=== PATIENT | female | born 1945 | race African-American/Black ===

== ENCOUNTER 2016-08-10 05:01 | Inpatient (IN) | payer OTHER ==
[2016-07-27 11:40] VITALS: BMI 30.9
[~2016-08-10 05:01] MED LIST: BACITRACIN 30 GM TUBE TOPICAL OINTMENT TP ONE; BUPIVACAINE HCL/PF 0.5% (5MG/ML) 10 ML VIAL IJ ONE
[2016-08-10] MEDS ORDERED: BUPIVACAINE HCL/PF 0.5% (5MG/ML) 10 ML VIAL ONE (07:12)
[2016-08-10] MEDS ORDERED: THROMBIN (BOVINE) 5,000 UNIT VIAL TP ONE ×3 (07:12→09:00)
[2016-08-10] MEDS ORDERED: BACITRACIN 30 GM TUBE TOPICAL OINTMENT ONE (07:12)
--- NOTE | 2016-08-10 07:29 | HP ---
History & Physical Update - History History: No Change - Physical Physical: No Change - Assessment Assessment: No Change - Plan Plan: No Change (70 yo F presents for planned lumbar laminectomy with Dr. Miguel. No changes to H&P present in paper chart. I introduced myself to the patient and informed her I would be assisting Dr. Miguel with today's surgery.)
[2016-08-10] MEDS ORDERED: MIDAZOLAM HCL 2 MG/2 ML SINGLE DOSE VIAL ONE (07:53)
[2016-08-10] MEDS ORDERED: ROCURONIUM BROMIDE 50 MG/5 ML VIAL ONE (07:54)
[2016-08-10] MEDS ORDERED: PROPOFOL 20 ML ONE (07:54)
[2016-08-10] MEDS ORDERED: ceFAZolin SODIUM 1 GM VIAL IVPB ONE (08:53)
[2016-08-10] MEDS ORDERED: ceFAZolin SODIUM 1 GM VIAL ONE (08:53)
[2016-08-10] MEDS ORDERED: BACITRACIN 50,000 UNITS VIAL TP ONE (09:00)
[2016-08-10] MEDS ORDERED: BUPIVACAINE HCL/PF 0.5% (5MG/ML) 10 ML VIAL IJ ONE (10:15)
[2016-08-10] MEDS ORDERED: ONDANSETRON 4 MG/2 ML VIAL ONE (10:42)
[2016-08-10] MEDS ORDERED: NEOSTIGMINE METHYLSULFATE 0.5 MG/ML - 10 ML MDV ONE (10:42)
[2016-08-10] MEDS ORDERED: GLYCOPYRROLATE 0.2 MG/1 ML VIAL ONE (10:42)
[2016-08-10] MEDS ORDERED: DEXAMETHASONE SOD PHOSPHATE 4 MG/1 ML VIAL ONE (10:42)
--- NOTE | 2016-08-10 10:45 | OP ---
Operative Note - Note: Operative Date: 08/10/16 Pre-Operative Diagnosis: Spinal stenosis, DDD, radiculopathy Operation: Complete B laminectomies L4 and L5, partial L3 and S1 laminectomies, medial facetectomies L3-4 and L4-5 and foramenotomies L3-4, L4-5, L5-S1; autologous bone graft, postero-lateral fusion L3-4 and L4-5 Findings: Hypermobility L3-4 and L4-5 Post-Operative Diagnosis: Same as Pre-op Surgeon: Mike Miguel Hydrometeorologist: Destiny Marte Anesthesiologist/DIGITAL ADVERTISING ANALYST: Maria Elena Whittaker MD Anesthesia: General Estimated Blood Loss (mls): 200
[2016-08-10] MEDS ORDERED: BACITRACIN 30 GM TUBE TOPICAL OINTMENT TP ONE (10:46)
[2016-08-10] MEDS ORDERED: ONDANSETRON 4 MG/2 ML VIAL IVPB PRN (10:46)
[2016-08-10] MEDS ORDERED: BISACODYL 10 MG SUPP.RECT RC PRN (10:46)
[2016-08-10] MEDS ORDERED: ALBUTEROL SO4 6.7 GM HFA INHALER IH PRN (10:51)
--- NOTE | 2016-08-10 11:13 | SURG ---
Surgery Hand Tennis Ball Coverer Note Hand Tennis Ball Coverer: Destiny Marte PA-C Date of Service: 08/10/16 Diagnosis: Spinal stenosis, DDD, radiculopathy Procedure: Complete bilat laminectomies L4 and L5, partial L3 and S1 laminectomies, medial facetectomies L3-4 and L4-5 and foramenotomies L3-4, L4-5, L5-S1; autologous bone graft, postero-lateral fusion L3-4 and L4-5 I was present for the entirety of the operative procedure. For further detail, please refer to operative report. Visit type - Case Type Case Type: Scheduled Admission - Emergency Emergency Visit: No - New patient This patient is new to me today: Yes Date on this admission: 08/10/16 - Critical Care Critical Care patient: No
[2016-08-10] MEDS ORDERED: DEXAMETHASONE SOD PHOSPHATE 4 MG/1 ML VIAL IVPUSH PRN (11:19)
[2016-08-10] MEDS ORDERED: PROMETHAZINE HCL 25 MG/1 ML VIAL IVPB PRN (11:19)
[2016-08-10] MEDS ORDERED: HYDROmorphone *PCA* 10MG/50ML DISP.SYRIN PCA ONE (11:40)
[2016-08-10] MEDS: HYDROmorphone *PCA* 10MG/50ML DISP.SYRIN PCA SCH ×2 (11:45→17:48)
[2016-08-10 12:13] LABS: MCH 28.5 pg (25.7-33.7); MCHC 31.5 g/dl (32.0-36.0); MEAN CELL VOLUME 90.5 fl (80-96); PLATELET COUNT 154 K/MM3 (134-434); RDW 13.8 % (11.6-15.6)
[2016-08-10 13:38] LABS: CALCIUM 8.8 mg/dL (8.5-10.1); COCKROFT - GAULT 83.13; CREATININE 0.8 mg/dL (0.55-1.02)
--- NOTE | 2016-08-10 17:20 | PN ---
Progress Note (short form) - Note Progress Note: NEUROSURGERY Pt seen in PACU earlier AF, VSS Incisional pain Dressing intact Drain in place Motor at least 4+/5 B LE Sensation grossly intact LT WBC 5. 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
[2016-08-10] MEDS: D5-1/2NS+20 MEQ KCL - 1,000 ML IV SCH (17:47)
[2016-08-10] MEDS: diazePAM 5 MG TABLET PO SCH ×2 (17:48→18:01)
[2016-08-10] MEDS: DOCUSATE SODIUM 100 MG CAPSULE (FP) PO SCH ×2 (17:49→21:11)
[2016-08-10] MEDS: CEFAZOLIN (PRE-DOCKED) 50 ML IVPB SCH (17:57)
[2016-08-10] MEDS: ATORVASTATIN CA 10 MG TABLET (FP) PO SCH (21:11)
[2016-08-11] MEDS: CEFAZOLIN (PRE-DOCKED) 50 ML IVPB SCH ×2 (02:31→11:16)
[2016-08-11] MEDS: diazePAM 5 MG TABLET PO SCH ×3 (02:32→18:05)
--- NOTE | 2016-08-11 02:34 | OP ---
DATE OF OPERATION: 08/10/2016 PREOPERATIVE DIAGNOSIS: 1. L4-5 greater than L3-4 degenerative disk disease. 2. Spinal stenosis at L4-5 greater than L3-4 and L5-S1. 3. Lower back pain and bilateral lumbar radiculopathy. 4. Hypertension. POSTOPERATIVE DIAGNOSIS: 1. L4-5 greater than L3-4 degenerative disk disease. 2. Spinal stenosis at L4-5 greater than L3-4 and L5-S1. 3. Lower back pain and bilateral lumbar radiculopathy. 4. Hypertension. ATTENDING SURGEON: Mike Miguel M.D. SUPERVISOR GRAPHITE: Stevan Hoang PROCEDURE: 1. Bilateral L4 and L5, and partial bilateral L3 and S1 laminectomy for spinal canal and lateral recess decompression including medial fasciectomy at L3-4 and L4-5 foraminotomies bilaterally, at L3-4 and L4-5 and L5-S1 for decompression of thecal sac as well as bilateral L3, L4, L5, S1 nerve roots ([id number], [id number], 16124, and 18213). 2. [place] of autologous laminar spinous process bone for interbody L4 posterolateral fusion ([id number]). 3. Posterolateral fusion L3-4, and L4-5 with autologous morcellized bone graft at L3-4 and L4-5 ([id number], [id number]). FINDINGS: 1. L3-4 and L4-5 are hypermobility. 2. Epidural venous oozing and paraspinal muscle oozing. INDICATION: The patient is a 70-year-old female with lower back pain, bilateral lumbar radiculopathy. She has undergone multi-modality conservative treatment but with persistent symptomatology. Because of intractable symptoms and very conservative treatment, she has consented for lumbar decompression, possible posterolateral bone graft fusion. The risks of procedure including but not limited to bleeding, infection, dural tear with CSF leak, neurological injury, increased thromboembolic risks and other risks of general anesthesia. The patient understands indication for the procedure, procedure in detail, risks and benefits and alternative for treatment of her lumbar condition and wishes to proceed. No guarantee was given for a favorable outcome. Preoperative medical clearance was obtained as well as cardiac clearance. PROCEDURE IN DETAIL: The patient was taken to the operating room. She was placed in supine position. After general anesthesia was induced and appropriate monitoring lines were placed, she was placed in prone position on Abelardo frame. All pressure points checked and padded. O2 saturation of bilateral lower extremity was 100% . Lumbar region was cleaned with alcohol and prepped with Betadine, and spinal needle placed. After the position was verified, a 4-inch incision was opened in midline from L3 to S1. Subperiosteal dissection was carried out with the periosteal elevator and monopolar cautery and electrocautery. Two self-retaining retractors were inserted. Facet joints at L3-4 and L4-5 were preserved. X-rays was obtained with a clamp on the bottom of left L4 lamina. After the position was verified, the supraspinatus and the interspinous ligament at L4 and L5 were resected with Leksell rongeur, and the spinous process at L4 and L5 were removed and morcellized for bone graft purposes. High speed pneumatic drill was used to complete laminectomy at L4-L5 as well as partially at L3 and S1. Kerrison rongeurs and angled curette were used to complete the job. Moderate degree of paraspinal in the epidural venous oozing was noted and hemostasis was maintained with bipolar electrocautery and thrombin- soaked powdered Gelfoam. The procedure was performed with loop magnification. Medial facetectomy at L3-4 and L4-5 was necessary in order to gain access to allow recess of proximal neural foramen. Even prior to laminectomy, a spinous process and ligament removal, the patient was found to have hypermobility L3-4 and L4-5. This was during intraoperative localizing x-ray. The bilateral foraminotomy at L3-4, L4-5, and L5-S1 were carried out with angled curette and Kerrison rongeur. The wound was irrigated with antibiotic containing irrigation. After the decompression was completed, the thecal sac was pulsating with CSF pulsation. A Valsalva maneuver was performed , and there is no CSF leak. Posterolateral surface of L3-4-5 including the proximal transverse processes were decorticated with high speed pneumatic drill and was then packed with autologous bone graft and bone dust which was harvested and morselized earlier. The wound was irrigated with copious amount of antibiotics and irrigation. A layer of Surgicel was laid in epidural space. A number 10 MESSI drain came out through a separate stab incision on right side. It was laid in epidural space. After the paraspinal hemostasis was obtained with bipolar electrocautery, the dorsal lumbar musculature was approximated with 0 Vicryl suture and dorsal lumbar fascia was closed with 0 Vicryl suture, subcutaneous fascia was closed with 0 Vicryl sutures, skin was closed with 4-0 Vicryl running subcuticular suture. Steri-Strips and sterile occlusive dressing was applied. The patient tolerated the procedure well, and was turned back to the supine position. She was moving bilateral upper and lower extremities well. She is not complaining of headache, and she has no new neurological deficit in the recovery room. The patient received 1 dose of 1 g of Ancef prior to the incision. All needle, sponge, lap counts are correct. OR time-out procedure was followed. Scott GARBER/[id number] MTDD
[2016-08-11] MEDS: DOCUSATE SODIUM 100 MG CAPSULE (FP) PO SCH ×3 (05:29→21:35)
--- NOTE | 2016-08-11 07:53 | PN ---
Progress Note (short form) - Note Progress Note: NEUROSURGERY POD #1 Incisional pain Tmax 98.6; AF, VSS Drain 85 cc yesterday, 80 cc today Incisional pain Dressing intact Motor at least 4+/5 B LE Sensation grossly intact LT SENIOR CONTRACTS ADMINISTRATOR Valium PT/OOB/incentive spirometry SCDS's for DVT prophylaxis Intra-op findings d/w pt Drain removed and dressing changed
[2016-08-11] MEDS: D5-1/2NS+20 MEQ KCL - 1,000 ML IV SCH ×2 (08:06→13:04)
--- NOTE | 2016-08-11 08:21 | PN ---
Progress Note (short form) - Note Progress Note: Anesthesia postop note and pain management follow up 70 y/o F s/p GA for lumbar laminectomy and dilaudid shingles roofer helper for pain management POD#1, vss, aaox3, pain well controlled with shingles roofer helper Will continue shingles roofer helper until patient tolerating po.
[2016-08-11] MEDS ORDERED: PATIENT'S OWN MEDICATION (NON-FORMULARY) (Lisinopril/Hydrochlorothiazide [Zestoretic 20-12 PO SCH (10:00)
[2016-08-11] MEDS ORDERED: PT OWN MED DRAWER 7, Y5N ONE (10:52)
[2016-08-11] MEDS: amLODIPine BESYLATE 5 MG TABLET (FP) PO SCH (11:17)
[2016-08-11] MEDS: HYDROCHLOROTHIAZIDE 12.5 MG CAPSULE (FP) PO SCH (11:17)
[2016-08-11] MEDS: POTASSIUM CHLORIDE TABS 10 MEQ TABLET.ER (FP) PO SCH (11:17)
[2016-08-11] MEDS: LISINOPRIL 20 MG TABLET (FP) PO SCH (11:17)
[2016-08-11] MEDS: HYDROmorphone *PCA* 10MG/50ML DISP.SYRIN PCA SCH (13:04)
[2016-08-11] MEDS: ACETAMINOPHEN 325 MG TABLET (FP) PO PRN (17:33)
[2016-08-11] MEDS ORDERED: D5-1/2NS+20 MEQ KCL - 1,000 ML IV SCH (18:45)
[2016-08-11] MEDS: ATORVASTATIN CA 10 MG TABLET (FP) PO SCH (21:35)
[2016-08-12] MEDS: ACETAMINOPHEN 325 MG TABLET (FP) PO PRN ×3 (01:21→18:44)
[2016-08-12] MEDS: diazePAM 5 MG TABLET PO SCH ×3 (02:58→18:45)
[2016-08-12] MEDS: DOCUSATE SODIUM 100 MG CAPSULE (FP) PO SCH ×3 (06:36→21:29)
--- NOTE | 2016-08-12 10:03 | PN ---
Progress Note (short form) - Note Progress Note: NEUROSURGERY POD #2 Incisional pain Legs and feet "a lot better" Tmax 101.2; now 100.4, VSS Drain out yesterday Incisional pain PE: CV- RRR; Lungs- CTA B; Abd- benign; Ext- no sign of DVT Dressing changed- minimal blood-tinged drainage Motor at least 4+/5 B LE Sensation grossly intact LT D/C TRUST OFFICER Incentive spirometry PT/OOB SCDS's for DVT prophylaxis CBC Observe temp If aferbrile plan d/c home tomorrow
[2016-08-12] MEDS: amLODIPine BESYLATE 5 MG TABLET (FP) PO SCH (10:15)
[2016-08-12] MEDS: POTASSIUM CHLORIDE TABS 10 MEQ TABLET.ER (FP) PO SCH (10:15)
[2016-08-12] MEDS: HYDROCHLOROTHIAZIDE 12.5 MG CAPSULE (FP) PO SCH (10:15)
[2016-08-12] MEDS: LISINOPRIL 20 MG TABLET (FP) PO SCH (10:15)
[2016-08-12] MEDS ORDERED: oxyCODONE HCL 5 MG TABLET ONE (10:18)
[2016-08-12] MEDS: oxyCODONE HCL 5 MG TABLET PO PRN ×3 (10:19→18:45)
--- NOTE | 2016-08-12 10:57 | PN ---
Progress Note (short form) - Note Progress Note: Post op day#2.Patient stable and c/o pain score of 2-3/10.SECRETARIAL STENOGRAPHER is Dc today and patient put on po pain medication.No any anesthesia related problem.Patient DC from the anesthesia care.
[2016-08-12] MEDS: ATORVASTATIN CA 10 MG TABLET (FP) PO SCH (21:29)
[2016-08-13] MEDS: oxyCODONE HCL 5 MG TABLET PO PRN ×4 (00:34→17:49)
[2016-08-13] MEDS: diazePAM 5 MG TABLET PO SCH ×3 (03:05→18:09)
[2016-08-13] MEDS: DOCUSATE SODIUM 100 MG CAPSULE (FP) PO SCH ×3 (05:57→21:21)
[2016-08-13 08:37] LABS: BASOPHIL 0.4 % (0-2.0); EOSINOPHIL 0.8 % (0-4.5); MCH 29.3 pg (25.7-33.7); MEAN CELL VOLUME 88.8 fl (80-96); MEAN PLT VOLUME 9.8 fl (7.5-11.1); NEUTROPHILS 55.9 % (42.8-82.8); PLATELET COUNT 173 K/MM3 (134-434); RDW 13.5 % (11.6-15.6); WHITE BLOOD COUNT 10.7 K/mm3 (4.0-10.0)
--- NOTE | 2016-08-13 08:45 | PN ---
Progress Note (short form) - Note Progress Note: NEUROSURGERY POD #3 Incisional pain Legs and feet "a lot better" Tmax 100.5; now 99.7, VSS Drain out POD #1 PE: CV- RRR; Lungs- CTA B; Abd- benign; Ext- no sign of DVT Dressing C/D/I Motor at least 4+/5 B LE Sensation grossly intact LT Incentive spirometry PT/OOB SCDS's for DVT prophylaxis CBC pending, check UA/CXR Given dry dressing start sq heparin also ID input VNS
--- NOTE | 2016-08-13 09:20 | PN ---
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 - Current Medication List Current Medications: Active Medications Acetaminophen (Tylenol -) 650 mg PO Q6H PRN PRN Reason: FEVER Last Admin: 08/12/16 18:44 Dose: 650 mg Albuterol Sulfate (Ventolin Hfa Inhaler -) 2 puff IH Q4H PRN PRN Reason: SHORT OF BREATH/WHEEZING Amlodipine Besylate (Norvasc -) 5 mg PO DAILY [facility] Last Admin: 08/12/16 10:15 Dose: 5 mg Atorvastatin Calcium (Lipitor -) 10 mg PO HS [facility] Last Admin: 08/12/16 21:29 Dose: 10 mg Bisacodyl (Dulcolax Suppository -) 10 mg RC DAILY PRN PRN Reason: CONSTIPATION Diazepam (Valium -) 5 mg PO Q8H [facility] Last Admin: 08/13/16 03:05 Dose: 5 mg Docusate Sodium (Colace -) 100 mg PO TID [facility] Last Admin: 08/13/16 05:57 Dose: 100 mg Fentanyl (Sublimaze Injection -) 50 mcg IVPUSH [id number] PRN PRN Reason: PAIN Stop: 08/13/16 11:20 Heparin Sodium (Porcine) (Heparin -) 5,000 unit SQ BID [facility] Hydrochlorothiazide (Hctz -) 12.5 mg PO DAILY [facility] Last Admin: 08/12/16 10:15 Dose: 12.5 mg Lisinopril (Prinivil) 20 mg PO DAILY [facility] Last Admin: 08/12/16 10:15 Dose: 20 mg Ondansetron HCl (Zofran Injection) 4 mg IVPB Q6H PRN PRN Reason: NAUSEA AND/OR VOMITING Oxycodone HCl (Roxicodone -) 5 mg PO Q4H PRN PRN Reason: PAIN Last Admin: 08/13/16 06:23 Dose: 5 mg Potassium Chloride (K-Dur -) 10 meq PO DAILY [facility] Last Admin: 08/12/16 10:15 Dose: 10 meq Promethazine HCl (Phenergan Injection -) 12.5 mg IVPB Q6H PRN PRN Reason: NAUSEA AND/OR VOMITING Propranolol HCl (Inderal La -) 240 mg PO DAILY [facility] Last Admin: 08/12/16 10:15 Dose: 240 mg - Objective Vital Signs: Vital Signs Temperature 99.7 F H 08/13/16 06:00 Pulse Rate 82 08/13/16 06:00 Respiratory Rate 18 08/13/16 06:00 Blood Pressure 114/56 08/13/16 06:00 O2 Sat by Pulse Oximetry (%) 96 08/12/16 21:00 Constitutional: Yes: Well Nourished, No Distress Cardiovascular: Yes: S1, S2. No: Tachycardia, Murmur Respiratory: Yes: WNL, Regular, CTA Bilaterally Gastrointestinal: Yes: WNL, Normal Bowel Sounds, Soft. No: Tenderness, Tenderness, Epigastrium Extremities: No: Cold, Cool, Cyanosis Edema: No Wound/Incision: Yes: Other (Intact) Labs: CBC, BMP 08/13/16 07:00 08/10/16 10:46 Problem List - Problems (1) Postoperative fever Code(s): R50.82 - POSTPROCEDURAL FEVER Assessment/Plan Laboratory Tests 08/13/16 07:00 WBC 10.7 H D Hgb 10.5 L Hct 31.7 L Plt Count 173 Assessment Post laminectomy fever looks well at this time Plan Observe only Cultures for over 101 and chest xray Vancom and Cefepime for any worseing clinical status [place] BROWN
--- NOTE | 2016-08-13 09:56 | CONS ---
DATE OF CONSULTATION: HISTORY: A 70-year-old female who I am asked to see post laminectomy for evaluation of fever. The case was briefly discussed with Dr. Miguel who had performed elective surgery on August 10, 2016. The preoperative diagnosis was spinal stenosis with radiculopathy. She underwent laminectomies of L4 and L5 as well as L3 and S1, facetectomies with autologous bone graft and posterolateral fusion L3-L4, L4-L5. The day postoperative, she began to have fever to 101.3. She is now day 3 postoperative and currently has a low-grade temperature of 99.7. The patient denies any localizing complaints. Specifically, she has no shortness of breath, chest pain, abdominal pain, diarrhea, or urinary complaints. She is not coughing and has not had any recent febrile illness prior to surgery. To date, she has been observed only. She is on no antibiotic. The patient has no history of recent trauma. 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 She is and has grown children. No one at home is sick. She has no pets, and her only hobbies include working with indoor plants at home. She has no HIV risk factors. PAST MEDICAL HISTORY: Includes glaucoma, hypertension, cholecystectomy, asthma, cholesterol. CURRENT MEDICATIONS: Include Zofran, Prinivil, Inderal, Lipitor. ALLERGIES: None known. SOCIAL HISTORY: Nonsmoker. No history of substance abuse or drinking. FAMILY HISTORY: Reviewed and noncontributory. REVIEW OF SYSTEMS: Respiratory: No cough, shortness of breath, hemoptysis. Cardiac: No chest pain, palpitations, history of murmur. Gastrointestinal: No abdominal pain, nausea, vomiting, diarrhea. Genitourinary: No dysuria, hematuria, urinary frequency. PHYSICAL EXAMINATION: General: She is an alert female sitting in a chair. Quite comfortable and able to ambulate. Vital Signs: Temperature 99.7, pulse 82, blood pressure 114/56, respirations 18, O2 saturation 96%. Neck: Supple without adenopathy. Lungs: Clear to P and A. Heart: S1, S2. Regular rhythm without audible murmur. Abdomen: Soft and nontender without guarding or rebound. Extremities: No clubbing, cyanosis, or edema. Surgical site, dressing intact. LABORATORY DATA: White count 420, 10.7, hemoglobin 10.5, platelets 173 with a normal differential. Chemistries dated August 10 within normal limits. ASSESSMENT: A 70-year-old female status post elective laminectomy August 10 with postoperative course now with intermittent fevers mostly low grade in the absence of any complaints from the patient or obvious localizing signs of infection. At this point, agree as discussed with Dr. Miguel with observing her only with no antibiotics to be given. Should she have recurrent fever, I would recommend repeat blood work including blood cultures, urine culture, and chest x-ray. In the event of any clinical worsening would empirically treat her with a combination of vancomycin 1.25 g along with cefepime 2 g q.8. DEION BERNAL M.D. DEANA/[id number]
[2016-08-13 10:22] LABS: URINE APPEARANCE CLEAR; URINE BILIRUBIN NEGATIVE (NEGATIVE); URINE COLOR LTYELLOW; URINE GLUCOSE (UA) NEGATIVE (NEGATIVE); URINE KETONE TRACE (NEGATIVE); URINE NITRITE NEGATIVE (NEGATIVE); URINE PROTEIN NEGATIVE (NEGATIVE); URINE UROBILINOGEN NEGATIVE E.U./dl (0.2-1.0)
[2016-08-13] MEDS: HYDROCHLOROTHIAZIDE 12.5 MG CAPSULE (FP) PO SCH (10:45)
[2016-08-13] MEDS: POTASSIUM CHLORIDE TABS 10 MEQ TABLET.ER (FP) PO SCH (10:45)
[2016-08-13] MEDS: HEPARIN NA (PORCINE) 5,000 UNITS/ML 1ML VIAL SQ SCH ×2 (10:45→21:21)
[2016-08-13] MEDS: amLODIPine BESYLATE 5 MG TABLET (FP) PO SCH (10:45)
[2016-08-13] MEDS: LISINOPRIL 20 MG TABLET (FP) PO SCH (10:45)
[2016-08-13 11:21] LABS: URINE BLOOD 1+ (NEGATIVE); URINE LEUK ESTERASE 2+ (NEGATIVE)
[2016-08-13 11:27] LABS: URINE MUCUS RARE; URINE RBC 2 /hpf (0-3); URINE WBC 15 /hpf (3-5)
[2016-08-13] MEDS: ATORVASTATIN CA 10 MG TABLET (FP) PO SCH (21:21)
[2016-08-14] MEDS: oxyCODONE HCL 5 MG TABLET PO PRN ×3 (00:43→12:59)
[2016-08-14] MEDS: diazePAM 5 MG TABLET PO SCH ×2 (02:40→11:07)
[2016-08-14] MEDS ORDERED: LEVOFLOXACIN 500 MG TABLET (FP) PO SCH (06:00)
[2016-08-14] MEDS: DOCUSATE SODIUM 100 MG CAPSULE (FP) PO SCH ×2 (06:00→12:59)
--- NOTE | 2016-08-14 06:02 | PN ---
Progress Note (short form) - Note Progress Note: NEUROSURGERY POD #4 Incisional pain No sciatica Appreciate ID input Tmax 99.6, VSS PE: CV- RRR; Lungs- CTA B; Abd- benign; Ext- no sign of DVT Dressing C/D/I- changed Motor at least 4+/5 B LE Sensation grossly intact LT WBC 10.7, UA + 2+ leuk esterase, 15 WBC, 2 RBC CXR- mild blunting L CV angle; no infiltrate Urine culture sent Incentive spirometry PT/OOB ON Sq heparin and SCDS's for DVT prophylaxis Levaquin x 7 days VNS for VS, wound, safety Home this am if no fever
[2016-08-14 06:58] VITALS: PULSE 72
[2016-08-14] MEDS ORDERED: PT OWN MED DRAWER 7, Y5N ONE (09:48)
[2016-08-14] MEDS: LISINOPRIL 20 MG TABLET (FP) PO SCH (09:53)
[2016-08-14] MEDS: POTASSIUM CHLORIDE TABS 10 MEQ TABLET.ER (FP) PO SCH (09:53)
[2016-08-14] MEDS: HEPARIN NA (PORCINE) 5,000 UNITS/ML 1ML VIAL SQ SCH (09:54)
[2016-08-14] MEDS: HYDROCHLOROTHIAZIDE 12.5 MG CAPSULE (FP) PO SCH (09:54)
[2016-08-14] MEDS: amLODIPine BESYLATE 5 MG TABLET (FP) PO SCH (09:54)
[2016-08-14 17:38] VITALS: BP 108/66; TEMP 98.3
== END 2016-08-14 13:35 | disposition home or self-care (01) | DRG 460 ==
LOC: JSAMEDAYSX 05:01 → J8W 15:46
PROVIDERS: ADMIT Neurological Surgery; ATTEND Neurological Surgery
PROC: 0SG10A1 (ICD-10-PCS; 2016-08-10)
PROC: 0SG1071 Fusion of 2 or more Lumbar Vertebral Joints with Autologous Tissue Substitute, Posterior Approach, Posterior Column, Open Approach (ICD-10-PCS; 2016-08-10)
PROC: 00NY0ZZ Release Lumbar Spinal Cord, Open Approach (ICD-10-PCS; principal; 2016-08-10 08:00)
DX: M48.06 Spinal stenosis, lumbar region (principal); M54.16 Radiculopathy, lumbar region; I10 Essential (primary) hypertension; R50.82 Postprocedural fever
CPT/HCPCS: 36415; 71020-TC; 72100-TC; 80048; 81003; 81015; 85025; 85027; 86850; 86900; 86901; 87086; 94760; 97116-GP; 97161-GP; J1644

== ENCOUNTER 2021-01-27 08:14 | Observation (INO) | payer OTHER ==
[2021-01-27 08:22] VITALS: BMI 32.2
[2021-01-27] MEDS ORDERED: SODIUM CHLORIDE 0.9% 500 ML INFUS.BAG IV ONE (09:29)
[2021-01-27 09:56] LABS: BASO % 1.1 % (0-2.0); EOS % 1.4 % (0-4.5); HEMATOCRIT 39.4 % (32.4-45.2); HEMOGLOBIN 12.9 GM/dL (10.7-15.3); LYMPH % 24.1 % (8-40); MCH 28.8 pg (25.7-33.7); MCHC 32.7 g/dl (32.0-36.0); MEAN CELL VOLUME 88.2 fl (80-96); MEAN PLT VOLUME 9.4 fl (7.5-11.1); MONO % 10.5 % (3.8-10.2); NEUT % 62.9 % (42.8-82.8); PLATELET COUNT 197 10^3/uL (134-434); RBC 4.47 M/mm3 (3.60-5.2); RDW 13.2 % (11.6-15.6); WHITE BLOOD COUNT 6.3 K/mm3 (4.0-10.0)
[2021-01-27] MEDS ORDERED: MECLIZINE HCL 25 MG TABLET (FP) PO ONE (10:13)
[2021-01-27 10:20] LABS: CHLORIDE 109 mmol/L (98-107); SODIUM 142 mmol/L (136-145)
[2021-01-27] MEDS ORDERED: MECLIZINE HCL 25 MG TABLET (FP) ONE (10:21)
[2021-01-27 10:22] LABS: ANION GAP 6 MMOL/L (8-16); CALCIUM 9.6 mg/dL (8.5-10.1); CO2 27 mmol/L (21-32); GLUCOSE,RANDOM 99 mg/dL (74-106)
[2021-01-27 10:23] LABS: BLOOD UREA NITROGEN 12.2 mg/dL (7-18)
[2021-01-27 10:25] LABS: SGOT/AST 17 U/L (15-37); SGPT/ALT 20 U/L (13-61)
[2021-01-27 10:26] LABS: CREATININE 0.8 mg/dL (0.55-1.3)
[2021-01-27 10:27] LABS: BILIRUBIN,TOTAL 0.6 mg/dL (0.2-1); TOT PROT 7.4 g/dl (6.4-8.2)
[2021-01-27 10:28] LABS: ALK PHOS 77 U/L (45-117)
[2021-01-27] MEDS ORDERED: diazePAM 5 MG TABLET PO ONE (12:58)
[2021-01-27] MEDS ORDERED: diazePAM 5 MG TABLET ONE (13:26)
[2021-01-27] MEDS ORDERED: ALBUTEROL SO4 HFA INHALER IH PRN (15:03)
[2021-01-27] MEDS ORDERED: MECLIZINE HCL 25 MG TABLET (FP) PO PRN (15:15)
[2021-01-27] MEDS ORDERED: ALPRAZolam 0.25 MG TABLET PO PRN (15:15)
[2021-01-27 19:35] LABS: CHOLESTEROL 149 mg/dL (50-200); TRIGLYCERIDES 71 mg/dL (0-150)
[2021-01-27 19:36] LABS: LDL CHOLESTEROL (ONLY SJRH) 65 mg/dL (5-100)
[2021-01-27 19:37] LABS: HDL CHOLESTEROL 70 mg/dL (40-60)
[2021-01-27] MEDS ORDERED: ATORVASTATIN CA 10 MG TABLET (FP) PO SCH (22:00)
[2021-01-27] MEDS ORDERED: ATORVASTATIN CA 10 MG TABLET (FP) ONE (22:26)
[2021-01-28] MEDS ORDERED: INSULIN SLIDING SCALE (NOVOLOG) 1 VIAL SQ SCH (07:00)
[2021-01-28 07:01] VITALS: BP 132/62; PULSE 57; TEMP 98.5
[2021-01-28 07:07] LABS: BASO % 0.8 % (0-2.0); HEMATOCRIT 37.5 % (32.4-45.2); HEMOGLOBIN 12.3 GM/dL (10.7-15.3); LYMPH % 36.7 % (8-40); MCH 29.4 pg (25.7-33.7); MCHC 32.7 g/dl (32.0-36.0); MEAN CELL VOLUME 89.8 fl (80-96); MEAN PLT VOLUME 9.8 fl (7.5-11.1); MONO % 10.5 % (3.8-10.2); PLATELET COUNT 182 10^3/uL (134-434); RBC 4.17 M/mm3 (3.60-5.2); RDW 13.5 % (11.6-15.6)
[2021-01-28 07:23] LABS: CALCIUM 8.8 mg/dL (8.5-10.1)
[2021-01-28 07:24] LABS: ALBUMIN 3.6 g/dl (3.4-5.0); MAGNESIUM 1.9 mg/dL (1.8-2.4)
[2021-01-28 07:27] LABS: CREATININE 0.7 mg/dL (0.55-1.3); PHOSPHOROUS 4.3 mg/dL (2.5-4.9)
[2021-01-28 07:28] LABS: BILIRUBIN,TOTAL 0.8 mg/dL (0.2-1)
[2021-01-28 07:29] LABS: TOT PROT 6.6 g/dl (6.4-8.2)
[2021-01-28 07:40] LABS: BLOOD UREA NITROGEN 14.9 mg/dL (7-18)
[2021-01-28] MEDS ORDERED: amLODIPine BESYLATE 5 MG TABLET (FP) PO SCH (10:00)
[2021-01-28] MEDS ORDERED: LISINOPRIL 20 MG TABLET PO SCH (10:00)
[2021-01-28] MEDS ORDERED: HYDROCHLOROTHIAZIDE 12.5 MG CAPSULE (FP) PO SCH (10:00)
[2021-01-28] MEDS ORDERED: ASPIRIN 81 MG CHEWABLE TABLETS PO SCH (10:00)
[2021-01-28] MEDS ORDERED: PATIENT'S OWN MEDICATION (NON-FORMULARY) (Lisinopril/Hydrochlorothiazide [Zestoretic 20-12 PO SCH (10:00)
[2021-01-28] MEDS ORDERED: MECLIZINE HCL 25 MG TABLET (FP) ONE (11:28)
== END 2021-01-28 11:55 | disposition home or self-care (01) ==
LOC: JER 08:14 → JERBED 12:54
PROVIDERS: ADMIT Internal Medicine; ATTEND Internal Medicine
PROC: 3E0337Z Introduction of Electrolytic and Water Balance Substance into Peripheral Vein, Percutaneous Approach (ICD-10-PCS; principal; 2021-01-27)
DX: R42 Dizziness and giddiness (principal); E11.9 Type 2 diabetes mellitus without complications; I10 Essential (primary) hypertension; I48.91 Unspecified atrial fibrillation; E66.9 Obesity, unspecified; Z68.32 Body mass index [BMI] 32.0-32.9, adult
CPT/HCPCS: 36415; 70450-TC; 70551-TC; 71046-TC-FY; 80053; 80061; 83036; 83735; 84100; 84443; 84484; 85025; 93005; 93010; 93880-TC; 99285-25; C9803; G0378; U0003; U0005

== ENCOUNTER 2021-02-03 12:18 | Emergency (ER) | payer OTHER ==
[2021-02-03 12:28] VITALS: BMI 32.2
[2021-02-03 13:52] LABS: BASO % 1.3 % (0-2.0); EOS % 3.1 % (0-4.5); HEMATOCRIT 39.7 % (32.4-45.2); MCH 29.3 pg (25.7-33.7); MCHC 32.8 g/dl (32.0-36.0); MEAN CELL VOLUME 89.4 fl (80-96); MEAN PLT VOLUME 9.4 fl (7.5-11.1); MONO % 9.3 % (3.8-10.2); NEUT % 51.3 % (42.8-82.8); PLATELET COUNT 209 10^3/uL (134-434); RBC 4.44 M/mm3 (3.60-5.2); RDW 13.5 % (11.6-15.6)
[2021-02-03 14:16] LABS: CHLORIDE 108 mmol/L (98-107); SODIUM 141 mmol/L (136-145)
[2021-02-03 14:17] LABS: ALBUMIN 4.2 g/dl (3.4-5.0); ANION GAP 5 MMOL/L (8-16); CALCIUM 9.6 mg/dL (8.5-10.1); CO2 28 mmol/L (21-32); MAGNESIUM 2.1 mg/dL (1.8-2.4)
[2021-02-03 14:18] LABS: GLUCOSE,RANDOM 94 mg/dL (74-106)
[2021-02-03 14:20] LABS: SGPT/ALT 22 U/L (13-61)
[2021-02-03 14:21] LABS: CREATININE 0.7 mg/dL (0.55-1.3); SGOT/AST 30 U/L (15-37)
[2021-02-03 14:22] LABS: BILIRUBIN,TOTAL 0.7 mg/dL (0.2-1); TOT PROT 7.9 g/dl (6.4-8.2)
[2021-02-03 14:23] LABS: ALK PHOS 79 U/L (45-117)
[2021-02-03 14:26] LABS: BLOOD UREA NITROGEN 15.8 mg/dL (7-18)
[2021-02-03 16:56] VITALS: BP 136/78; PULSE 78; TEMP 98.5
== END 2021-02-03 16:56 | disposition home or self-care (01) ==
LOC: JER 12:18
DX: R55 Syncope and collapse (principal); R20.2 Paresthesia of skin
CPT/HCPCS: 36415; 71046-TC-FY; 80053; 82550; 82553; 83735; 84484; 85025; 93005; 93010; 93971-TC; 99285-25; C9803; U0003; U0005

== ENCOUNTER 2023-02-14 16:39 | Observation (INO) | payer OTHER ==
[2023-02-14 16:45] VITALS: BMI 30.7
[2023-02-14] MEDS ORDERED: ACETAMINOPHEN 1000 MG/100 ML BAG IVPB ONE (17:26)
[2023-02-14] MEDS ORDERED: SODIUM CHLORIDE 0.9% 500 ML INFUS.BAG IV ONE ×2 (17:26→19:35)
[2023-02-14 17:46] LABS: BASO % 1.7 % (0-2.0); EOS % 2.6 % (0-4.5); HEMATOCRIT 38.9 % (32.4-45.2); HEMOGLOBIN 13.2 GM/dL (10.7-15.3); LYMPH % 33.8 % (8-40); MCH 29.5 pg (25.7-33.7); MCHC 33.9 g/dl (32.0-36.0); MEAN PLT VOLUME 9.1 fl (7.5-11.1); MONO % 11.6 % (3.8-10.2); NEUT % 50.3 % (42.8-82.8); PLATELET COUNT 193 10^3/uL (134-434); RBC 4.47 M/mm3 (3.60-5.2); RDW 14.1 % (11.6-15.6); WHITE BLOOD COUNT 5.4 K/mm3 (4.0-10.0)
[2023-02-14] MEDS ORDERED: ACETAMINOPHEN INJECTION 100 ML IVPB ONE (17:47)
[2023-02-14 17:48] LABS: EPI CELLS 4 /uL (0-25.1); HYALINE CASTS 0 /uL (0-3.1); PH,URINE 5.5 (5.0-8.0); URINE APPEARANCE CLEAR; URINE BACTERIA 9 /uL (0-1359); URINE BILIRUBIN NEGATIVE (NEGATIVE); URINE COLOR YELLOW; URINE GLUCOSE (UA) NEGATIVE (NEGATIVE); URINE KETONE NEGATIVE (NEGATIVE); URINE LEUK ESTERASE TRACE (NEGATIVE); URINE NITRITE NEGATIVE (NEGATIVE); URINE PROTEIN NEGATIVE (NEGATIVE); URINE RBC 14 /uL (0-23.9); URINE UROBILINOGEN 0.2 mg/dL (0.2-1.0); URINE WBC 9 /uL (0-25.8)
[2023-02-14 17:54] LABS: INR 1.05 (0.83-1.09); PROTHROMBIN TIME (PATIENT) 12.2 SEC (9.7-13.0)
[2023-02-14 17:56] LABS: ACTIVATED PTT 30.1 SECONDS (25.2-36.5)
[2023-02-14 19:12] LABS: POTASSIUM 4.8 mmol/L (3.5-5.1)
[2023-02-14 19:15] LABS: ALBUMIN 3.9 g/dl (3.4-5.0)
[2023-02-14 19:16] LABS: MAGNESIUM 1.7 mg/dL (1.8-2.4)
[2023-02-14 19:19] LABS: CREATININE 0.7 mg/dL (0.55-1.3)
[2023-02-14 19:20] LABS: BILIRUBIN,TOTAL 0.7 mg/dL (0.2-1); TOT PROT 7.2 g/dl (6.4-8.2)
[2023-02-14] MEDS ORDERED: MAGNESIUM SULF 50% (8.12 MEQ/2 ML-1 GM VIAL) IVPB ONE (19:28)
[2023-02-14] MEDS ORDERED: MAGNESIUM SULFATE IN WATER 2 GM/50 ML IVPB IVPB ONE (19:30)
[2023-02-14] MEDS ORDERED: METOCLOPRAMIDE HCL INJECTION 10 MG/2 ML VIAL IVPUSH ONE (19:34)
[2023-02-14] MEDS ORDERED: METOCLOPRAMIDE HCL INJECTION 10 MG/2 ML VIAL ONE (19:54)
[2023-02-14] MEDS: INSULIN SLIDING SCALE (NOVOLOG) 1 VIAL SQ SCH (23:41)
[2023-02-15] MEDS ORDERED: ALBUTEROL SO4 HFA INHALER IH PRN (03:06)
[2023-02-15] MEDS: INSULIN SLIDING SCALE (NOVOLOG) 1 VIAL SQ SCH ×3 (07:58→16:48)
[2023-02-15] MEDS ORDERED: HYDROCHLOROTHIAZIDE 12.5 MG CAPSULE (FP) PO SCH (10:00)
[2023-02-15] MEDS ORDERED: POTASSIUM CHLORIDE TABS 10 MEQ TABLET.ER (FP) PO SCH (10:00)
[2023-02-15] MEDS ORDERED: ASPIRIN 81 MG CHEWABLE TABLETS PO SCH (10:00)
[2023-02-15] MEDS ORDERED: amLODIPine BESYLATE 5 MG TABLET (FP) PO SCH (10:00)
[2023-02-15] MEDS ORDERED: LISINOPRIL 20 MG TABLET PO SCH (10:00)
[2023-02-15] MEDS ORDERED: ENOXAPARIN NA (PORCINE) 40 MG/0.4 ML DISP.SYRIN SQ SCH (10:00)
[2023-02-15 10:55] LABS: HEMOGLOBIN 12.6 GM/dL (10.7-15.3); MCH 29.7 pg (25.7-33.7); MCHC 34.2 g/dl (32.0-36.0); MEAN CELL VOLUME 87.1 fl (80-96); MEAN PLT VOLUME 9.5 fl (7.5-11.1); PLATELET COUNT 196 10^3/uL (134-434); RBC 4.25 M/mm3 (3.60-5.2); RDW 13.7 % (11.6-15.6); WHITE BLOOD COUNT 5.8 K/mm3 (4.0-10.0)
[2023-02-15 11:20] LABS: POTASSIUM 4.1 mmol/L (3.5-5.1)
[2023-02-15 11:29] LABS: BLOOD UREA NITROGEN 10.9 mg/dL (7-18); CALCIUM 9.1 mg/dL (8.5-10.1); MAGNESIUM 2.1 mg/dL (1.8-2.4)
[2023-02-15 11:31] LABS: ALBUMIN 3.9 g/dl (3.4-5.0)
[2023-02-15 11:33] LABS: CREATININE 0.7 mg/dL (0.55-1.3)
[2023-02-15 11:34] LABS: BILIRUBIN,TOTAL 0.9 mg/dL (0.2-1); PHOSPHOROUS 3.2 mg/dL (2.5-4.9)
[2023-02-15 11:35] LABS: TOT PROT 7.1 g/dl (6.4-8.2)
[2023-02-15 17:34] VITALS: BP 148/80; PULSE 64; RESP 18; TEMP 98.8
[2023-02-15] MEDS ORDERED: LATANOPROST 0.005% OPHTH SOLN 2.5ML BOTTLE OU SCH (22:00)
[2023-02-15] MEDS ORDERED: MONTELUKAST NA 10 MG TABLET PO SCH (22:00)
[2023-02-15] MEDS ORDERED: ATORVASTATIN CA 10 MG TABLET (FP) PO SCH (22:00)
== END 2023-02-15 17:44 | disposition home or self-care (01) ==
LOC: JER 16:39 → JERBED 19:48
PROVIDERS: ADMIT Internal Medicine; ATTEND Internal Medicine
PROC: 3E033NZ Introduction of Analgesics, Hypnotics, Sedatives into Peripheral Vein, Percutaneous Approach (ICD-10-PCS; principal; 2023-02-14)
PROC: 3E023GC Introduction of Other Therapeutic Substance into Muscle, Percutaneous Approach (ICD-10-PCS; 2023-02-14)
PROC: 3E033GC Introduction of Other Therapeutic Substance into Peripheral Vein, Percutaneous Approach (ICD-10-PCS; 2023-02-14)
PROC: 3E0337Z Introduction of Electrolytic and Water Balance Substance into Peripheral Vein, Percutaneous Approach (ICD-10-PCS; 2023-02-14)
DX: I10 Essential (primary) hypertension (principal); E78.5 Hyperlipidemia, unspecified; E11.9 Type 2 diabetes mellitus without complications; J45.909 Unspecified asthma, uncomplicated; E83.42 Hypomagnesemia
CPT/HCPCS: 0241U-QW; 36415; 70544-TC; 70551-TC; 71046-TC-FY; 80053; 81003; 82962; 83036; 83735; 84100; 84484; 85025; 85027; 85610; 85730; 87086; 93005; 93010; 96365; 96375; 99285-25; G0378

== ENCOUNTER 2023-10-13 08:56 | Inpatient (IN) | payer OTHER ==
[2023-10-13] MEDS ORDERED: ACETAMINOPHEN INJECTION 100 ML IVPB ONE (10:09)
[2023-10-13] MEDS: SODIUM CHLORIDE 0.9% 500 ML INFUS.BAG IV ONE (10:33)
[2023-10-13] MEDS: ACETAMINOPHEN 1000 MG/100 ML BAG IVPB ONE (10:33)
[2023-10-13 10:56] LABS: INR 1.06 (0.83-1.09)
[2023-10-13 10:59] LABS: ACTIVATED PTT 28.6 SECONDS (25.2-36.5)
[2023-10-13 11:00] LABS: URINE APPEARANCE Clear; URINE BILIRUBIN Negative (NEGATIVE); URINE COLOR Yellow; URINE GLUCOSE (UA) Negative (NEGATIVE); URINE KETONE Negative (NEGATIVE); URINE LEUK ESTERASE Negative (NEGATIVE); URINE NITRITE Negative (NEGATIVE); URINE PROTEIN Negative (NEGATIVE); URINE UROBILINOGEN 0.2 mg/dL (0.2-1.0)
[2023-10-13 11:00] LABS: BASO % 0.6 % (0-2.0); EOS % 0.9 % (0-4.5); HEMATOCRIT 41.8 % (32.4-45.2); HEMOGLOBIN 13.3 GM/dL (10.7-15.3); LYMPH % 29.1 % (8-40); MCH 28.6 pg (25.7-33.7); MCHC 31.7 g/dl (32.0-36.0); MEAN CELL VOLUME 90.3 fl (80-96); MEAN PLT VOLUME 9.2 fl (7.5-11.1); MONO % 10.3 % (3.8-10.2); NEUT % 59.1 % (42.8-82.8); PLATELET COUNT 204 10^3/uL (134-434); RBC 4.63 M/mm3 (3.60-5.2); WHITE BLOOD COUNT 5.5 K/mm3 (4.0-10.0)
[2023-10-13 11:04] LABS: POTASSIUM 4.3 mmol/L (3.5-5.1)
[2023-10-13 11:07] LABS: ALBUMIN 4.2 g/dl (3.4-5.0); BLOOD UREA NITROGEN 12.3 mg/dL (7-18); CALCIUM 10.2 mg/dL (8.5-10.1)
[2023-10-13 11:11] LABS: BILIRUBIN,TOTAL 1.1 mg/dL (0.2-1); CREATININE 0.9 mg/dL (0.55-1.3); TOT PROT 7.4 g/dl (6.4-8.2)
[2023-10-13 13:14] LABS: EPI CELLS 13 /uL (0-25.1); HYALINE CASTS 0.7 /uL (0-3.1); URINE BACTERIA 13 /uL (0-1359); URINE RBC 28 /uL (0-23.9); URINE WBC 11 /uL (0-25.8)
[2023-10-13] MEDS ORDERED: PIPERACILLIN/TAZOB 4.5 GM 4.5 GM/100 ML BAG IVPB ONE (16:47)
[2023-10-13] MEDS: PIPERACILLIN/TAZOB 4.5 GM 4.5 GM in DEXTROSE 5%-WATER 100 ML IVPB ONE (16:55)
[2023-10-13] MEDS: LACTATED RINGERS SOLUTION 1,000 ML/1,000 ML INFUS.BAG IV SCH (18:04)
[2023-10-13] MEDS ORDERED: ATORVASTATIN CA 10 MG TABLET (FP) ONE (21:56)
[2023-10-13] MEDS ORDERED: PIPERACILLIN/TAZOB 3.375 GM 3.375 GM/50 ML BAG IVPB ONE (21:56)
[2023-10-13] MEDS ORDERED: HEPARIN NA (PORCINE) 5,000 UNITS/ML 1ML VIAL ONE (21:56)
[2023-10-13] MEDS: ATORVASTATIN CA 10 MG TABLET (FP) PO SCH (22:07)
[2023-10-13] MEDS: HEPARIN NA (PORCINE) 5,000 UNITS/ML 1ML VIAL SQ SCH (22:07)
[2023-10-13] MEDS: PIPERACILLIN/TAZOB 3.375 GM 3.375 GM in DEXTROSE 5%-WATER - 50 ML IVPB SCH (22:07)
[2023-10-13] MEDS: ACETAMINOPHEN 500 MG TABLET (FP) PO PRN (22:32)
[2023-10-13] MEDS: ONDANSETRON 4 MG/2 ML VIAL IVPUSH PRN (22:32)
[2023-10-13] MEDS ORDERED: PIPERACILLIN/TAZOB 3.375 GM 3.375 GM in DEXTROSE 5%-WATER - 50 ML IVPB SCH (23:00)
[2023-10-13 23:24] VITALS: BMI 31.2
[2023-10-14 08:19] LABS: BASO % 0.7 % (0-2.0); HEMATOCRIT 37.9 % (32.4-45.2); HEMOGLOBIN 12.1 GM/dL (10.7-15.3); LYMPH % 23.1 % (8-40); MCH 28.9 pg (25.7-33.7); MEAN CELL VOLUME 90.2 fl (80-96); NEUT % 65.2 % (42.8-82.8); PLATELET COUNT 172 10^3/uL (134-434); RDW 13.7 % (11.6-15.6); WHITE BLOOD COUNT 5.2 K/mm3 (4.0-10.0)
[2023-10-14 08:28] LABS: POTASSIUM 3.5 mmol/L (3.5-5.1)
[2023-10-14 08:32] LABS: BLOOD UREA NITROGEN 9.3 mg/dL (7-18); CALCIUM 9.1 mg/dL (8.5-10.1)
[2023-10-14 08:35] LABS: CREATININE 0.8 mg/dL (0.55-1.3)
[2023-10-14] MEDS: LISINOPRIL 20 MG TABLET PO SCH (09:32)
[2023-10-14] MEDS: HYDROCHLOROTHIAZIDE 12.5 MG CAPSULE (FP) PO SCH (09:32)
[2023-10-14] MEDS ORDERED: PROPRANOLOL HCL 160 MG PO SCH (10:00)
[2023-10-14] MEDS ORDERED: PATIENT'S OWN MEDICATION (NON-FORMULARY) (Lisinopril/Hydrochlorothiazide [Lisinopril-Hctz PO SCH (10:00)
[2023-10-14] MEDS: MONTELUKAST NA 10 MG TABLET PO SCH (10:04)
[2023-10-14] MEDS: amLODIPine BESYLATE 5 MG TABLET (FP) PO SCH (10:04)
[2023-10-14] MEDS: ASPIRIN 81 MG CHEWABLE TABLETS PO SCH (10:04)
[2023-10-14] MEDS: PIPERACILLIN/TAZOB 3.375 GM 3.375 GM in DEXTROSE 5%-WATER - 50 ML IVPB SCH (17:33)
[2023-10-15 08:04] LABS: BASO % 0.7 % (0-2.0); EOS % 1.9 % (0-4.5); HEMATOCRIT 36.7 % (32.4-45.2); HEMOGLOBIN 11.8 GM/dL (10.7-15.3); LYMPH % 38.1 % (8-40); MCH 29.1 pg (25.7-33.7); MCHC 32.2 g/dl (32.0-36.0); MEAN CELL VOLUME 90.6 fl (80-96); MEAN PLT VOLUME 8.8 fl (7.5-11.1); MONO % 11.7 % (3.8-10.2); NEUT % 47.6 % (42.8-82.8); PLATELET COUNT 173 10^3/uL (134-434); RBC 4.05 M/mm3 (3.60-5.2); RDW 13.7 % (11.6-15.6); WHITE BLOOD COUNT 4.3 K/mm3 (4.0-10.0)
[2023-10-15 08:26] LABS: CALCIUM 9.3 mg/dL (8.5-10.1); POTASSIUM 3.9 mmol/L (3.5-5.1)
[2023-10-15 08:27] LABS: BLOOD UREA NITROGEN 5.6 mg/dL (7-18)
[2023-10-15 08:30] LABS: CREATININE 0.8 mg/dL (0.55-1.3); PHOSPHOROUS 4.2 mg/dL (2.5-4.9)
[2023-10-15 19:07] VITALS: RESP 18
[2023-10-16 06:40] LABS: BASO % 1.6 % (0-2.0); EOS % 1.5 % (0-4.5); HEMATOCRIT 39.1 % (32.4-45.2); HEMOGLOBIN 12.7 GM/dL (10.7-15.3); MCH 29.2 pg (25.7-33.7); MCHC 32.4 g/dl (32.0-36.0); MEAN CELL VOLUME 90.1 fl (80-96); MEAN PLT VOLUME 8.9 fl (7.5-11.1); MONO % 9.4 % (3.8-10.2); NEUT % 47.5 % (42.8-82.8); PLATELET COUNT 199 10^3/uL (134-434); RBC 4.34 M/mm3 (3.60-5.2); RDW 13.8 % (11.6-15.6); WHITE BLOOD COUNT 5.6 K/mm3 (4.0-10.0)
[2023-10-16 07:26] LABS: POTASSIUM 3.7 mmol/L (3.5-5.1)
[2023-10-16 07:27] LABS: CALCIUM 9.2 mg/dL (8.5-10.1)
[2023-10-16 07:28] LABS: BLOOD UREA NITROGEN 6.8 mg/dL (7-18)
[2023-10-16 07:31] LABS: CREATININE 0.8 mg/dL (0.55-1.3)
[2023-10-16 14:21] VITALS: BP 117/66; PULSE 65; TEMP 98.4
== END 2023-10-16 18:14 | disposition home or self-care (01) | DRG 392 ==
LOC: JER 08:56 → JERBED 15:54 → J7W 22:16 → OBSVTOIN 10-15 11:37
PROVIDERS: ADMIT Internal Medicine; ATTEND Nurse Practitioner Family
DX: R19.7 Diarrhea, unspecified (principal); I10 Essential (primary) hypertension; J45.909 Unspecified asthma, uncomplicated; H40.9 Unspecified glaucoma; R10.33 Periumbilical pain; K57.90 Diverticulosis of intestine, part unspecified, without perforation or abscess without bleeding
CPT/HCPCS: 0241U-QW; 36415; 74177-TC; 80048; 80053; 81003; 82272; 83605; 83690; 83735; 84100; 85025; 85610; 85730; 86850; 86900; 86901; 87045; 87046; 87086; 87205; 87324; 87449; 93005; 93010; 99285-25; G0378; J0131; J1644; Q9967

== ENCOUNTER 2023-12-02 04:37 | Day surgery (SDC) | payer OTHER ==
[2023-11-25 15:09] VITALS: BMI 32.9
[2023-12-02 11:56] VITALS: TEMP 97.9
[2023-12-02 12:04] VITALS: BP 113/76; PULSE 80; RESP 18
== END 2023-12-02 12:02 | disposition home or self-care (01) ==
LOC: JASU-ENDO 04:37
PROVIDERS: ATTEND Internal Medicine Gastroenterology
PROC: 0DJD8ZZ Inspection of Lower Intestinal Tract, Via Natural or Artificial Opening Endoscopic (ICD-10-PCS; principal; 2023-12-02 09:30)
DX: Z12.11 Encounter for screening for malignant neoplasm of colon (principal); K57.30 Diverticulosis of large intestine without perforation or abscess without bleeding; K64.8 Other hemorrhoids